=== PATIENT | female | born 1960 | race Caucasian/White ===

== ENCOUNTER 2016-04-03 14:08 | Outpatient (CLI) ==
[2012-08-01 13:15] VITALS: TEMP 97.2
[2016-02-29 13:38] VITALS: BMI 31.8
--- NOTE | 2016-04-03 14:37 | DI ---
EXAM: Two views of the chest. History: Follow-up pneumonia, respiratory failure. Comparison: Chest radiograph 06/22/2014, chest CT 02/19/2016 Findings: Heart size is normal. Right central line again seen in place. Calcified granulomas agai n seen within the thorax. No focal consolidation. No appreciable pleural fluid and no pneumothorax . Visualized osseous structures are unchanged. Impression: No acute cardiopulmonary process.
== END 2016-04-03 14:09 | disposition home or self-care (01) ==
LOC: RAD 14:08
PROVIDERS: ATTEND Family Medicine
DX: R53.81 Other malaise (principal); J18.9 Pneumonia, unspecified organism; A41.9 Sepsis, unspecified organism; J96.90 Respiratory failure, unspecified, unspecified whether with hypoxia or hypercapnia

== ENCOUNTER 2016-05-20 22:01 | Emergency (ER) ==
[2012-08-01 13:15] VITALS: TEMP 97.2
[2016-05-20 22:18] VITALS: BP 149/103; TEMP 98.6; BMI 40.6
--- NOTE | 2016-05-20 22:48 | ED.PDOC ---
General ED Provider: Dr. JAY CHAPMAN Chief Complaint: Respiratory Complaint Stated Complaint: Patient is a 55 year old female who states that she blacked out while standing, fell this morning. Now having dyspnea, right chest pain and left knee pain. She states she was confused soon after the fall. Time Seen by Physician: 22:42 Mode of Arrival: Wheelchair Information Source: Patient, Family Exam Limitations: No limitations Primary Care Provider: CHRISTOPHER LOPEZ Nursing and Triage Documentation Reviewed and Agree: Yes Respiratory Complaint Exam - Shortness of Air Complaint/Exam Onset/Duration: 1 day Symptoms Are: Still present Timing: Intermittent Initial Severity: Severe Current Severity: Severe Character: Reports: Dyspnea at rest Aggravating: Reports: Deep breaths Associated Signs and Symptoms: Reports: Chest pain (right upper chest ), Labored breathing Related History: Reports: Recent trauma (this morning. ) Cardiac Risk Factors: Reports: None Tuberculosis Risk Factors: Reports: None Home Oxygen Use: Yes (prn) Recent Stress Test: No Recent Echo/LV Function: No Respiratory Distress: Mild Stridor Present: No Tracheal Deviation: No Subcutaneous Emphysema: No Accessory Muscle Use: No Retractions: Not Present Diminished Breath Sounds: Yes Prolonged Expiratory Phase: No Unable to Speak Full Sentences: No Fatigue: No Leg Swelling: No Andry's Sign Present: No Grunting Respirations: No Kussmaul Respirations: No Differential Diagnoses: COPD Exacerbation, Pneumothorax, Pulmonary Embolism, Other (rib fractures ) Quality Indicator For Non-Traumatic Chest Pain/Syncope: EKG Performed Related Surgical History: Reports: Pneumothorax (rib fracture ) Review of Systems - Review Of Systems Constitutional: Reports: No symptoms Eyes: Reports: No symptoms Ears, Nose, Mouth, Throat: Reports: No symptoms Respiratory: Reports: No symptoms Cardiac: Reports: Chest pain GI: Reports: No symptoms : Reports: No symptoms Musculoskeletal: Reports: No symptoms Skin: Reports: No symptoms Neurological: Reports: Anxiety, Headache, Other (confusion after the fall. ) Endocrine: Reports: No symptoms Hematologic/Lymphatic: Reports: No symptoms All Other Systems: Reviewed and Negative Past Medical History - Past Medical History Previously Healthy: No Endocrine: Reports: None Cardiovascular: Reports: Hypertension Respiratory: Reports: COPD Hematological: Reports: None Gastrointestinal: Reports: None Genitourinary: Reports: None Neuro/Psych: Reports: None Musculoskeletal: Reports: Arthritis Cancer: Reports: Other (endometrial cancer ) Last Menstrual Period: 2010 Other Pertinent Past Medical History: Obesity - Surgical History General Surgical History: Reports: Hysterectomy, Cholecystectomy (surgery to repair gallbladder surg complication) - Family History Family History: Reports: None - Social History Smoking Status: Former smoker Hx Substance Use: No Alcohol Screening: None - Immunizations Tetanus Shot up to Date: No Physical Exam - Physical Exam Appearance: Ill-appearing, Obese Ill-appearing: Moderate Pain Distress: Severe Eyes: TIP, EOMI, Conjunctiva clear ENT: Ears normal, Nose normal, Oropharynx normal Neck: Supple Respiratory: Airway patent, Breath sounds diminished, Respirations nonlabored Cardiovascular: RRR, Pulses normal, No rub, No murmur GI/: Soft, Nontender, No masses, Bowel sounds normal, No Organomegaly Musculoskeletal: Normal strength, No calf tenderness, Limited ROM (left knee ), Edema Skin: Warm, Dry, Normal color Neurological: Sensation intact, Motor intact, Alert, Oriented Psychiatric: Anxious Interpretation - Radiology Interpretation Radiology Interpretation By: Radiologist Radiology Results: Positive (subcutenous Air Around the port onthe right upper chest which may represent infection.) Exam Interpreted: CT Scan - Graphics Manager Rate: Normal Rhythm: Sinus Ectopy: None - EKG Interpretation Time of EKG #1: 23:21 Rate: Normal Rhythm: Sinus Ectopy: None Husser: NL ST Segment: Normal Interpretation: normal EKG Physician Notification - Case Discussed Physician Notified: Tania Time of Notification: 03:06 (accepted for transfer. ) Critical Care Note - Critical Care Note Total Time (mins): 30 Course - Course Hematology/Chemistry: 05/20/16 23:10 05/20/16 23:10 Orders, Labs, Meds: Lab Review 05/20/16 05/20/16 22:50 23:10 WBC 5.64 RBC 4.33 Hgb 13.3 Hct 39.9 MCV 92.1 MCH 30.7 MCHC 33.3 RDW Coeff of Collin 13.6 Plt Count 141 Immature Gran % (Auto) 0.4 Neut % (Auto) 74.2 Lymph % (Auto) 15.8 [place] % (Auto) 6.6 Eos % (Auto) 2.5 Baso % (Auto) 0.5 Immature Gran # (Auto) 0.0 Neut # 4.2 Lymph # 0.9 [place]ster # 0.4 Eos # 0.1 Baso # 0.0 D-Dimer 8.10 H Puncture Site Rb O2 Saturation 88.0 L ABG pH 7.370 ABG pCO2 47.5 H ABG pO2 56.0 L* ABG HCO3 27.4 H ABG Total CO2 29 H ABG Base Excess 2 Zion Test + FiO2 % 21.0 Sodium 138 Potassium 4.0 Chloride 100 Carbon Dioxide 26 Anion Gap 16.0 BUN 12 Creatinine 1.12 Estimated GFR (MDRD) 50.00 BUN/Creatinine Ratio 10.71 Glucose 108 Lactic Acid 15.9 Calcium 9.3 Total Bilirubin 0.54 AST 11 L ALT 15 Alkaline Phosphatase 142 H Total Creatine Kinase 54 Troponin I < 0.0100 Total Protein 7.4 Albumin 3.8 Globulin 3.6 Albumin/Globulin Ratio 1.06 Procalcitonin < 0.05 Orders Category Date Time Status ABG DRAW REQUEST Stat CARDIO 05/20/16 22:52 Completed EKG-(ED ONLY) Stat CARDIO 05/20/16 22:51 Completed NEBULIZER TREATMENT Stat CARDIO 05/20/16 22:52 Completed ED DRILL PRESS TENDER APPLIED .ONCE EMERGENCY 05/20/16 22:50 Active ED IV/MEDIPORT/POWERPORT .ONCE EMERGENCY 05/20/16 22:50 Active ABG Stat LAB 05/20/16 22:50 Completed BLOOD CULTURE Stat LAB 05/20/16 23:10 Received CBC W/ AUTO DIFF Stat LAB 05/20/16 23:10 Completed COMPREHENSIVE METABOLIC PANEL Stat LAB 05/20/16 23:10 Completed CREATINE KINASE Stat LAB 05/20/16 23:10 Completed D-DIMER Stat LAB 05/20/16 23:10 Completed LACTIC ACID Stat LAB 05/20/16 23:10 Completed PROCALCITONIN Stat LAB 05/20/16 23:10 Completed TROPONIN I Stat LAB 05/20/16 23:10 Completed 0.9 % Sodium Chloride [Saline Flush] MEDS 05/20/16 22:50 Ordered 1 syr IVF PRN PRN Hydromorphone HCl [Dilaudid 1 mg/ml Syringe] MEDS 05/21/16 02:27 Discontinued 1 mg IVP ONCE STA Ipratropium/Albuterol Neb [Duoneb] MEDS 05/20/16 22:50 Discontinued 1 vial NEB ONCE STA Morphine Sulfate [Morphine 4 mg/ml Syringe] MEDS 05/20/16 23:04 Discontinued 4 mg IVP ONCE STA Ondansetron HCl/Pf [Zofran 4 mg/2 ml] MEDS 05/20/16 23:04 Discontinued 4 [address] IVP ONCE [address]A CT CERVICAL SPINE W/O CONTRAST Stat RADS 05/20/16 23:[address] CHEST W/O CONTRAST Stat RADS 05/20/16 23:[address] HEAD W/O CONTRAST Stat RADS 05/20/16 23:10 Completed KNEE, LEFT 4 VIEWS Stat RADS 05/20/16 23:13 Completed Medications Generic Name Dose Route Start Last Admin Trade Name Freq PRN Reason Stop Dose Admin Sodium Chloride 1 syr 05/20/16 22:50 05/21/16 03:02 Saline Flush IVF 1 syr PRN PRN Administration To flush IV Discontinued Medications Generic Name Dose Route Start Last Admin Trade Name Freq PRN Reason Stop Dose Admin Albuterol/Ipratropium 1 vial 05/20/16 22:50 05/20/16 23:20 Duoneb NEB 05/20/16 22:51 1 vial ONCE STA Administration Hydromorphone HCl 1 mg 05/21/16 02:27 05/21/16 03:01 Dilaudid 1 Mg/Ml Syringe IVP 05/21/16 02:28 1 mg ONCE STA Administration Morphine Sulfate 4 mg 05/20/16 23:04 05/20/16 23:38 Morphine 4 Mg/Ml Syringe IVP 05/20/16 23:05 4 mg ONCE STA Administration Ondansetron HCl 4 mg 05/20/16 23:04 05/20/16 23:38 Zofran 4 Mg/2 Ml IVP 05/20/16 23:05 4 mg ONCE STA Administration Vital Signs: Temp Pulse Resp BP Pulse Ox 05/20/16 22:07 98.6 F 89 22 149/103 H 96 Departure - Departure Time of Disposition: 03:07 Disposition: TSF SHORT-TRM HOSP Discharge Problem: Chest pain Subcutaneous emphysema Qualifiers: Encounter type: initial encounter Qualifier Code: (T79.7XXA) Traumatic subcutaneous emphysema, initial encounter Condition: Fair Pt referred to PMD for follow-up: No Allergies/Adverse Reactions: Allergies ketorolac tromethamine [From Toradol] Adverse Reaction (Mild, Verified 05/21/16 00:23) Itching itching at IV site and up her arm immediately after given clarithromycin [From Biaxin] Adverse Reaction (Verified 05/21/16 00:23) levofloxacin [From Levaquin] Adverse Reaction (Verified 05/21/16 00:23) promethazine HCl [From Phenergan] Adverse Reaction (Verified 05/21/16 00:23) sulfamethoxazole [From Bactrim] Adverse Reaction (Verified 05/21/16 00:23) trimethoprim [From Bactrim] Adverse Reaction (Verified 05/21/16 00:23) O Adverse Reaction (Uncoded 05/21/16 00:23) ORAL CONTRAST Adverse Reaction (Uncoded 05/21/16 00:23) Home Medications: Ambulatory Orders Albuterol Sulfate [Proair Hfa] 2 puff IH Q4H PRN 08/01/12 Citalopram Hydrobromide [Celexa] 40 mg PO DAILY 08/01/12 Ropinirole HCl [Requip] 0.5 mg PO BEDTIME 08/01/12 Trazodone HCl 150 mg PO BEDTIME 08/01/12 Furosemide [Lasix] 20 mg PO DAILY 06/22/14 Metoclopramide HCl [Reglan] 5 mg PO BID 06/22/14 Potassium Chloride [K-Dur] 20 meq PO DAILY 06/22/14 Amlodipine Besylate 5 mg PO DAILY 01/07/16 Diazepam 5 mg PO BID 01/07/16 Dicyclomine HCl 10 cap PO TID 01/07/16 Pantoprazole Sodium [Protonix] 40 mg PO BID 01/07/16 Sucralfate [Carafate] 1 gm PO ACHS 04/20/16 Oxycodone HCl 20 mg PO Q8HR PRN 05/21/16 Tiotropium [place] [Spiriva] 1 cap IH DAILY 05/21/16
[2016-05-20] MEDS ORDERED: DUONEB NEB STA (22:50)
[2016-05-20] MEDS ORDERED: MORPHINE 4 MG/ML SYRINGE IVP STA (23:04)
[2016-05-20] MEDS ORDERED: ZOFRAN 4 MG/2 ML IVP STA (23:04)
[2016-05-20 23:17] LABS: BASOPHILS % (AUTO) 0.5 % (0.0-3.0); EOSINOPHILS # (AUTO) 0.1 K/ul (0.0-0.7); EOSINOPHILS % (AUTO) 2.5 % (0.0-7.0); HEMATOCRIT 39.9 % (37.0-47.0); HEMOGLOBIN 13.3 g/dl (12.0-16.0); IMMATURE GRANULOCYTE % (AUTO) 0.4 % (0.0-5.0); LYMPHOCYTES # (AUTO) 0.9 K/uL (0.60-3.4); LYMPHOCYTES % (AUTO) 15.8 (10.0-50.0); MEAN CORPUSCULAR HEMOGLOBIN 30.7 pg (27.0-31.0); MEAN CORPUSCULAR HGB CONC 33.3 (31.8-35.4); MEAN CORPUSCULAR VOLUME 92.1 fl (81.0-99.0); MONOCYTES # (AUTO) 0.4 K/uL (0.4-2.0); MONOCYTES % (AUTO) 6.6 (0-10); NEUTROPHILS # (AUTO) 4.2 K/ul (2.0-6.9); NEUTROPHILS % (AUTO) 74.2; PLATELET COUNT 141 10^3/uL (140-440); RED BLOOD COUNT 4.33 10^6/ul (4.20-5.40); WHITE BLOOD COUNT 5.64 K/ul (4.6-10.2)
[2016-05-20 23:31] LABS: ABG BASE EXCESS 2 (-2.0-2.0); ABG PCO2 47.5 mmHg (35-45)
[2016-05-20 23:32] LABS: ABG HCO3 27.4 (22.0-26.0); ABG TCO2 29 (22.0-28.0)
[2016-05-20 23:52] LABS: ALANINE AMINOTRANSFERASE 15 U/L (12-78); ALBUMIN 3.8 g/dL (3.4-5.0); ALBUMIN/GLOBULIN RATIO 1.06; ALKALINE PHOSPHATASE 142 U/L (42-98); ASPARTATE AMINO TRANSFERASE 11 U/L (15-37); BILIRUBIN,TOTAL 0.54 mg/dL (0.00-1.20); BLOOD UREA NITROGEN 12 mg/dL (7-18); BUN/CREATININE RATIO 10.71; CALCIUM 9.3 mg/dL (8.2-10.2); CARBON DIOXIDE 26 mmol/L (21-32); CHLORIDE 100 mmol/L (98-107); CREATINE KINASE 54 U/L; CREATININE 1.12 mg/dL (0.60-1.30); GLUCOSE 108 mg/dL (70-110); SODIUM 138 mmol/L (136-145); TOTAL PROTEIN 7.4 g/dL (6.4-8.2)
--- NOTE | 2016-05-21 00:55 | CT ---
EXAM: CT of the cervical spine without contrast. HISTORY: Fall. PROCEDURE: Contiguous axial CT images of the cervical spine without contrast with coronal and sagit jenny reformats. FINDINGS: There is normal alignment of the cervical vertebral bodies and facets. The vertebral body heights are maintained. There is multilevel disc space narrowing. There are small posterior osteo phytes at multiple levels of the cervical spine. There is multilevel facet arthropathy. The C1-2 r elationship is maintained. No prevertebral soft tissue abnormality. Impression: No evidence of fracture. Normal alignment of the cervical spine with degenerative changes as described.
--- NOTE | 2016-05-21 01:04 | CT ---
EXAM: CT of the chest without contrast. HISTORY: Fall. PROCEDURE: Contiguous axial CT images of the chest without contrast with coronal and sagittal refor mats. FINDINGS: The heart is within normal limits in size. The thoracic aorta is within normal limits in diameter. There are calcified mediastinal and hilar lymph nodes. There is a MediPort catheter in ad equate position. There is subcutaneous air and inflammatory stranding adjacent to the port of the c atheter in the right anterior chest. There is minimal bibasilar atelectasis. No pneumothorax. There are T11 and T12 compression fractures with up to 90% loss of vertebral body height. There is an L1 compression fracture with interval increased compression compared with CT of 02/29/2016. There are multiple old bilateral rib fractures. Impression: T11, T12 and L1 compression fractures as described. Minimal bilateral atelectasis. Multiple old bilateral rib fractures. MediPort catheter with adjacent subcutaneous air and inflammatory stranding which may be related to recent placement of the MediPort catheter versus infection.
--- NOTE | 2016-05-21 01:10 | CT ---
EXAM: CT scan brain without contrast HISTORY: Fall COMPARISON: CT scan brain 07/31/2011 FINDINGS: Contiguous axial images obtained from the skull base to the convexities without contrast utilizing 5-mm collimation. Sagittal and coronal reconstructions were imaged and reviewed. The vent ricles and CSF spaces are mildly prominent compatible with age appropriate atrophy. There is perive ntricular hypodensity noted compatible with chronic microvascular disease. There are no acute intra cranial findings. The calvarium is intact. Mild scalp swelling is seen in the right frontal region . IMPRESSION: Age appropriate atrophy with chronic microvascular disease. Mild right frontal scalp swelling
--- NOTE | 2016-05-21 01:57 | DI ---
EXAM: Left knee three views HISTORY: Fall COMPARISON: None. FINDINGS: There is no evidence of fracture or joint effusion. There is mild narrowing of the media l joint compartment.. Surrounding soft tissues are unremarkable. IMPRESSION: No acute findings.
[2016-05-21] MEDS ORDERED: DILAUDID 1 MG/ML SYRINGE IVP STA (02:27)
== END 2016-05-21 03:45 | disposition short-term general hospital (02) ==
LOC: ED 22:01
DX: R07.9 Chest pain, unspecified (principal); T79.7XXA Traumatic subcutaneous emphysema, initial encounter; M25.562 Pain in left knee; R55 Syncope and collapse; R41.0 Disorientation, unspecified; R51 Headache; I10 Essential (primary) hypertension; Z79.899 Other long term (current) drug therapy; W19.XXXA Unspecified fall, initial encounter
CPT/HCPCS: 36415; 80053; 82550; 82803; 83605; 84145; 84484; 85025; 85379; 87040; 93005; 93010; 94640; 96374; 96375; 99285

== ENCOUNTER 2016-05-21 03:44 | Outpatient (CLI) ==
[2012-08-01 13:15] VITALS: TEMP 97.2
[2016-05-20 22:18] VITALS: BMI 40.6
== END 2016-05-21 03:45 ==
LOC: AMBL 03:44
PROVIDERS: ATTEND Internal Medicine Geriatric Medicine
DX: R07.89 Other chest pain (principal); W19.XXXA Unspecified fall, initial encounter; Z95.828 Presence of other vascular implants and grafts; Z98.890 Other specified postprocedural states

== ENCOUNTER 2016-05-27 12:52 | Outpatient (CLI) ==
[2012-08-01 13:15] VITALS: TEMP 97.2
--- NOTE | 2016-05-29 08:39 | HOLTER ---
PATIENT INFORMATION AND COMMENTS Indications: SYNCOPE __ Patient Medications: TRAZADONE, ZANAFLEX, POTASSIUM, DICYCLOMINE, REQUIP, CELEXA, AMLODIPINE, REGLAN, PROTONIX, FUROSEMIDE, DIAZEPAM, PRO AIR, OXYCODONE __ Pre-procedure Summary: Protocol: Standard Heart Rate Started: 05/27/16 1321 Minimum: 65 BPM Weight: 208 LBS Ended: 05/28/16 1321 Maximum: 117 BPM Height: 61" Duration: 24 HOURS Average: 87 BPM _ INTERPRETATIONS/OBSERVATIONS: 1. BASIC RHYTHM: SINUS, RATE 65 TO 120/MINUTE, AVERAGE 90/MINUTE 2. RARE PAC'S AND PVC'S 3. NO ST-T WAVE CHANGES FROM BASELINE 4. NO CORRELATION WITH ACTIVITY LOG MTDD
== END 2016-05-27 12:53 | disposition home or self-care (01) ==
LOC: CAR 12:52
PROVIDERS: ATTEND Family Medicine
DX: R55 Syncope and collapse (principal)
CPT/HCPCS: 93224

== ENCOUNTER 2016-08-11 16:15 | Observation (INO) | payer OTHER ==
[2016-08-11 17:43] VITALS: BMI 40.4
--- NOTE | 2016-08-11 18:22 | DI ---
EXAM: Chest, two views, 08/11/2016 HISTORY: Congestion COMPARISON: 04/03/2016 FINDINGS / IMPRESSION: Cardiomediastinal contours appear within normal limits. Basilar interstitia l opacities may represent atelectasis and/or pneumonia. There is no focal pulmonary consolidation. No pleural effusion or pneumothorax.
[2016-08-11] MEDS: SODIUM CHLORIDE 1,000 ML IV SCH (18:35)
[2016-08-11] MEDS: ZOFRAN 4 MG/2 ML IVP PRN (18:53)
[2016-08-11 19:09] LABS: ALANINE AMINOTRANSFERASE 9 U/L (12-78); ALBUMIN 3.2 g/dL (3.4-5.0); ALBUMIN/GLOBULIN RATIO 1.07; ALKALINE PHOSPHATASE 87 U/L (42-98); ANION GAP 12.7; ASPARTATE AMINO TRANSFERASE 15 U/L (15-37); BILIRUBIN,TOTAL 0.47 mg/dL (0.00-1.20); BLOOD UREA NITROGEN 5 mg/dL (7-18); BUN/CREATININE RATIO 5.74; CALCIUM 9.2 mg/dL (8.2-10.2); CARBON DIOXIDE 31 mmol/L (21-32); CHLORIDE 99 mmol/L (98-107); CREATINE KINASE 116 U/L; CREATININE 0.87 mg/dL (0.60-1.30); GLUCOSE 109 mg/dL (70-110); MYOGLOBIN 372 ng/ml; POTASSIUM 3.7 mmol/L (3.5-5.10); SODIUM 139 mmol/L (136-145); TOTAL PROTEIN 6.2 g/dL (6.4-8.2)
[2016-08-11 19:11] LABS: CREATINE KINASE MB 1.2 ng/ml (0.0-3.6)
[2016-08-11] MEDS ORDERED: VALIUM PO SCH (21:00)
[2016-08-11] MEDS ORDERED: ZANAFLEX PO SCH (21:00)
[2016-08-11] MEDS ORDERED: METOCLOPRAMIDE HCL 5 MG PO SCH (21:00)
[2016-08-11] MEDS ORDERED: REQUIP PO SCH (21:00)
[2016-08-11] MEDS ORDERED: NON-FORMULARY MEDICATION (Trazodone Hcl [Trazodone Hcl] 150 MG) PO SCH ×22 (21:00)
[2016-08-11] MEDS ORDERED: NON-FORMULARY MEDICATION (Pantoprazole Sodium [Protonix] 40 MG) PO SCH ×22 (21:00)
[2016-08-11] MEDS: OXYCODONE HCL 20 MG PO SCH (21:06)
[2016-08-12] MEDS: SODIUM CHLORIDE 1,000 ML IV SCH ×3 (02:20→18:52)
[2016-08-12 05:18] LABS: BASOPHILS % (AUTO) 0.7 % (0.0-3.0); EOSINOPHILS # (AUTO) 0.2 K/ul (0.0-0.7); HEMATOCRIT 34.4 % (37.0-47.0); IMMATURE GRANULOCYTE % (AUTO) 0.2 % (0.0-5.0); LYMPHOCYTES # (AUTO) 1.3 K/uL (0.60-3.4); LYMPHOCYTES % (AUTO) 32.5 (10.0-50.0); MEAN CORPUSCULAR HEMOGLOBIN 29.8 pg (27.0-31.0); MEAN CORPUSCULAR VOLUME 93.2 fl (81.0-99.0); MONOCYTES # (AUTO) 0.3 K/uL (0.4-2.0); MONOCYTES % (AUTO) 7.4 (0-10); NEUTROPHILS # (AUTO) 2.2 K/ul (2.0-6.9); NEUTROPHILS % (AUTO) 55.2; PLATELET COUNT 132 10^3/uL (140-440); RED BLOOD COUNT 3.69 10^6/ul (4.20-5.40); WHITE BLOOD COUNT 4.03 K/ul (4.6-10.2)
[2016-08-12] MEDS: OXYCODONE HCL 20 MG PO SCH (05:42)
[2016-08-12 06:00] LABS: BILIRUBIN,URINE Negative (NEGATIVE); KETONES,URINE Negative (NEGATIVE); LEUKOCYTE ESTERASE ,URINE Trace (NEGATIVE); NITRITE,URINE Positive (NEGATIVE); PROTEIN,URINE Negative (NEGATIVE); URINE, BLOOD Negative (NEGATIVE)
[2016-08-12 06:03] LABS: ADD URINE MICROSCOPIC YES
[2016-08-12] MEDS: DUONEB NEB SCH ×5 (06:18→23:27)
[2016-08-12] MEDS ORDERED: NON-FORMULARY MEDICATION (Pantoprazole Sodium [Protonix] 40 MG) PO SCH ×22 (06:30)
[2016-08-12] MEDS ORDERED: ZANAFLEX PO PRN (08:42)
[2016-08-12] MEDS ORDERED: OXYCODONE HCL 20 MG PO PRN (08:43)
[2016-08-12] MEDS ORDERED: NON-FORMULARY MEDICATION (Citalopram Hydrobromide [Celexa] 20 MG) PO SCH ×22 (09:00)
[2016-08-12] MEDS: ZOFRAN 4 MG/2 ML IVP PRN (09:35)
[2016-08-12] MEDS: VALIUM PO SCH ×2 (09:47→20:39)
[2016-08-12] MEDS: METOCLOPRAMIDE HCL 5 MG PO SCH ×2 (09:47→20:37)
[2016-08-12] MEDS: NORVASC PO SCH (09:48)
[2016-08-12] MEDS: NON-FORMULARY MEDICATION (Citalopram Hydrobromide [Celexa] 20 MG) PO SCH ×22 (09:52)
--- NOTE | 2016-08-12 11:56 | HP ---
SOURCE: The source of this information is prior knowledge of the patient, review of her office records, discussion with she and her ; both seem reliable. PATIENT PROFILE: Grecia is a 55-year-old , female resident of [facility]. She was cooperative. CHIEF COMPLAINT: "I am vomiting and so nauseous." BRIEF HISTORY OF PRESENT ILLNESS: She has on and off problems with nausea. She has had 12 to 24 hours of nearly persistent vomiting. She recalls in January having this when she was admitted to [facility] and subsequently developing a temperature of 102, hypoxemia, pneumonia and clinical findings for sepsis. She also recently had difficulty with recurring UTI and she has had dysuria. She wasn't sure if there has been a fever. She has multiple comorbidities including chronic respiratory failure of hypoxic type. We decided to place her on observation to acquire labs, chest x- ray, give fluids and see whether she does have findings to suggest sepsis. She does have a UTI, does have a pneumonia or whether she can have resolution of the nausea and vomiting with the brief fluids. PAST HISTORY: CHILDHOOD: Unremarkable. ALLERGIES/INTOLERANCE: BIAXIN (NAUSEA, VOMITING, DIARRHEA), ORAL CONTRAST ( NAUSEA, VOMITING, DIARRHEA), CEFTIN (DIARRHEA), ADVAIR (PALPITATIONS), BACTRIM ( NAUSEA), ELAVIL (PALPITIONS), IV TORADOL (ITCHING), LEVAQUIN (DIARRHEA), PHENERGAN (RESPIRATORY DISTRESS), PROMETHAZINE (NAUSEA AND VOMITING), PHENOTHIAZINE (NAUSEA AND VOMITING), K-DUR (HEARTBURN) HOME MEDICATIONS: 1. ProAir two puffs q.4hr as needed 2. Celexa 40 mg one a day 3. Desyrel/Trazodone 150 mg one at bedtime 4. Requip/Ropinirole 0.252 at bedtime 5. K-Dur/potassium chloride 12 mEq one a day as needed 6. Reglan/Metoclopramide 5 mg b.i.d. 7. Pantoprazole 40 mg b.i.d. 8. Valium/Diazepam 5 mg b.i.d. 9. Norvasc/Amlodipine 5 mg once a day 10. Dicyclomine 10 mg three times a day 11. Lasix/Furosemide 20 mg twice a day as needed for edema (and if she takes it she takes potassium) 12. Oxycodone 20 mg q.8hr 13. Zanaflex/Tizanidine 4 mg at bedtime 14. Oxygen 2L/nasal prong continuous HOSPITALIZATIONS/SURGERIES/PROCEDURES: 2, Para 2, AB 0. She had normal heart catheterization, Dr. Ellis, [facility] 08/31/04; several EGDs - the last one short Iyer's, Dr. Rodríguez , [place], 01/17/16. She has a history of being H. Pylori positive in 03/2012. She had a MICKY and BSO, Dr. Love, [facility], 02/10/11 for cancer. She had a lap gallbladder at [facility], Dr. Valerio, 12/30/12. Last admission here was 07/01 through 07/08/13 for shortness of breath, acute respiratory failure. FAMILY HISTORY: Diabetes in father, paternal grandmother. CVA maternal grandmother. Colon cancer in paternal grandfather. HABITS: Smoker, age 11, one pack per day. No second-handed smoke. No alcohol or drugs. SOCIAL HISTORY: 1989, has two children, employed at [employer] until she had to take disability in 2011. REVIEW OF SYSTEMS: GENERAL: She is extremely fatigued all the time; in fact we have been trying to get her into pulmonary rehabilitation but she needs spirometry done before she can get there. INTEGUMENT: She easily bruises. She denies any open wounds. HEENT: Denies nasal congestion, sore throat beyond her usual on and off. NECK: Chronic neck and back pain; denies mass. CHEST: Usual wheeze but no production. No hemoptysis. CARDIOVASCULAR: Denies chest pain, has occasional faster heart rate and leg edema. GI: Denies localized abdominal pain. Diffusely sore. Denies constipation, diarrhea. : Denies hematuria. MUSCULOSKELETAL: Several joints are sore but none are particularly red or swollen. NEUROLOGIC: Weakness of upper and lower extremities, makes gait difficult and she frequently uses a walker. PHYSICAL EXAMINATION: VITALS: Temperature 98.2, pulse 92, respirations 18, BP 166/100 left; 152/102 right arm; height 5'1", weight 214 pounds. GENERAL: Older than stated age white female who appears very fatigued; no obvious distress. INTEGUMENT: Several senile purpuric areas on the arms. Her color is somewhat ashen. Cushingoid features. Tongue is moist. HEENT: Facial symmetry. Pupils equal, round, extraocular movements intact. Tongue is midline. NECK: No point tenderness. No visible lymphadenopathy, thyromegaly, mass seen or felt and supple. No meningismus. CHEST: Markedly diminished, barreled. Soft expiratory wheeze; no dullness at the bases. CARDIOVASCULAR: S1, S2, distant without murmur, carotid bruit and distal pulses are intact. No current leg edema. GI: Protuberant. No rebound, guarding or mass though mildly tender throughout. Bowel sounds seemed diminished. : Deferred. MUSCULOSKELETAL: Marked muscle wasting without fasciculation. No red or swollen joints. NEUROLOGIC: Light touch sensation lower extremity. There is facial asymmetry. Instructional Assistant are equal. PSYCHIATRIC: She is oriented times h ASSESSMENT/PROBLEM LIST: 0. 55-year-old white female. 1. Allergies/intolerances see above. 2. Procedural history see above. 3. Family history see above. 4. Tobacco/nicotine abuse/addiction. 5. Obesity. 6. COPD. 7. Chronic depression. 8. History of GE reflux 9. History of peptic ulcer 10. Hypertension 11. Noncompliance - usually financially driven 12. Irritable bowel syndrome by GI opinion 13. Hiatal hernia by EGD 14. Uterine cancer - treated surgically 15. History of Iyer's 16. History of cystocele 17. Spondylolisthesis - lumbosacral 18. Chronic back pain 19. Obesity 20. Chronic respiratory failure - hypoxic 21. Chronic anxiety 22. Midline ventral hernia 23. Chronic headaches - questionable occipital 24. Insomnia - chronic 25. Sleep apnea compliant with treatment 26. Colitis - history of 27. Lower extremity radicular pain 28. Restless leg syndrome 29. Chronic steroids with Cushingoid features REASON FOR ADMISSION: # Nausea # Gait decline - acute on chronic # Nausea without vomiting # History of sepsis # Dysuria PLAN: 1. Labs have been ordered. 2. Chest x-ray has been ordered. 3. Will follow labs daily. 4. Medications have been reviewed; minor adjustments with medicines that could cause nausea. 5. Continue daily review of medications and their appropriateness. 6. Discharge plan from the onset would be home if at all possible. 7. Try to maintain stability of all the other chronic problems in the meantime. 8. Try to get her spirometry down while she is here. MTDD
[2016-08-12] MEDS ORDERED: OXYCODONE HCL 20 MG PO SCH (13:00)
[2016-08-12] MEDS: NON-FORMULARY MEDICATION (Pantoprazole Sodium [Protonix] 40 MG) PO SCH ×22 (16:43)
[2016-08-12] MEDS ORDERED: NON-FORMULARY MEDICATION (Trazodone Hcl [Trazodone Hcl] 150 MG) PO SCH ×22 (21:00)
[2016-08-12] MEDS ORDERED: ZANAFLEX PO SCH (21:00)
[2016-08-12] MEDS ORDERED: NON-FORMULARY MEDICATION (Ropinirole Hcl [Requip] 0.5 MG) PO SCH (21:00)
[2016-08-12] MEDS ORDERED: REQUIP PO SCH (21:00)
[2016-08-13] MEDS: DUONEB NEB SCH ×2 (05:22→11:36)
[2016-08-13] MEDS: NON-FORMULARY MEDICATION (Pantoprazole Sodium [Protonix] 40 MG) PO SCH ×22 (05:52)
[2016-08-13] MEDS: METOCLOPRAMIDE HCL 5 MG PO SCH (08:32)
[2016-08-13] MEDS: VALIUM PO SCH (08:32)
[2016-08-13] MEDS: NON-FORMULARY MEDICATION (Citalopram Hydrobromide [Celexa] 20 MG) PO SCH ×22 (08:32)
[2016-08-13] MEDS: NORVASC PO SCH (08:32)
[2016-08-13] MEDS ORDERED: PREMARIN VAGINAL CREAM VAGINAL SCH (09:00)
[2016-08-13 10:07] VITALS: BP 122/75; TEMP 97.9
--- NOTE | 2016-08-13 10:48 | PN ---
DATE OF SERVICE: 08/12/16 CHIEF COMPLAINT: "I was vomiting and nauseous." SUBJECTIVE: The patient was admitted through the office with complaints of rather sudden onset of nausea and vomiting though she has had this on and off. She had had previous sepsis; combining the complaints with dysuria. We were both concerned that she needed to be pursued as a possible infection. Fortunately, her vitals have remained stable, her prolactin and lactic acid were normal and her nausea and vomiting have improved perhaps from the IV fluids and/or diminution of Requip, Celexa and attention to some of her poly pharmacy. Her urine is clear. She continues to have feelings of dysuria and at times she can't even void when she feels she needs to go. She had her PFT today. FEV/FEV1 are extremely low in the 40 to 50 range. Her FEV percent is 76. White count 4, hemoglobin 11. She noted no acute distress. OBJECTIVE: INTEGUMENT: Cushingoid; no ankle edema in a lying position. Nonicteric sclerae. Mucous membranes moist. NECK: Supple. CHEST: Diminished; soft wheeze bilaterally; kyphotic. CARDIOVASCULAR: S1, S2 without murmur or peripheral edema. GI: No rebound, guarding or mass. ASSESSMENT: # Nausea, perhaps medication influence. # Nausea and vomiting - same. # Gait decline - acute on chronic. # History of sepsis. # Dysuria without cause. # Radiation vaginitis - likely. # Chronic respiratory failure - hypoxic. # COPD. PLAN: 1. We want to do a bladder scan after her next void and any time she feels she can't void to see if there is any issue with that. 2. Will start Estrogen cream if not even for a short period of time considering her uterine cancer history. 3. Maybe she can get her pulmonary rehabilitation started now as an outpatient. 4. Weaning IV. 5. Planning discharge tomorrow and she agrees if things remain stable. [facility]
--- NOTE | 2016-08-19 13:58 | DS ---
PATIENT PROFILE: Grecia is a 55-year-old , female resident of [facility]. She was cooperative. CHIEF COMPLAINT: "I am vomiting and so nauseous." BRIEF HISTORY OF PRESENT ILLNESS: She has on and off problems with nausea. She has had 12 to 24 hours of nearly persistent vomiting. She recalls in January having this when she was admitted to [facility] and subsequently developing a temperature of 102, hypoxemia, pneumonia and clinical findings for sepsis. She also recently had difficulty with recurring UTI and she has had dysuria. She wasn't sure if there has been a fever. She has multiple comorbidities including chronic respiratory failure of hypoxic type. We decided to place her on observation to acquire labs, chest x- ray, give fluids and see whether she does have findings to suggest sepsis. She does have a UTI, does have a pneumonia or whether she can have resolution of the nausea and vomiting with the brief fluids. PAST HISTORY: CHILDHOOD: Unremarkable. ALLERGIES/INTOLERANCE: BIAXIN (NAUSEA, VOMITING, DIARRHEA), ORAL CONTRAST ( NAUSEA, VOMITING, DIARRHEA), CEFTIN (DIARRHEA), ADVAIR (PALPITATIONS), BACTRIM ( NAUSEA), ELAVIL (PALPITIONS), IV TORADOL (ITCHING), LEVAQUIN (DIARRHEA), PHENERGAN (RESPIRATORY DISTRESS), PROMETHAZINE (NAUSEA AND VOMITING), PHENOTHIAZINE (NAUSEA AND VOMITING), K-DUR (HEARTBURN) HOME MEDICATIONS: 1. ProAir two puffs q.4hr as needed 2. Celexa 40 mg one a day 3. Desyrel/Trazodone 150 mg one at bedtime 4. Requip/Ropinirole 0.252 at bedtime 5. K-Dur/potassium chloride 12 mEq one a day as needed 6. Reglan/Metoclopramide 5 mg b.i.d. 7. Pantoprazole 40 mg b.i.d. 8. Valium/Diazepam 5 mg b.i.d. 9. Norvasc/Amlodipine 5 mg once a day 10. Dicyclomine 10 mg three times a day 11. Lasix/Furosemide 20 mg twice a day as needed for edema (and if she takes it she takes potassium) 12. Oxycodone 20 mg q.8hr 13. Zanaflex/Tizanidine 4 mg at bedtime 14. Oxygen 2L/nasal prong continuous HOSPITALIZATIONS/SURGERIES/PROCEDURES: 2, Para 2, AB 0. She had normal heart catheterization, Dr. Ellis, [facility] 08/31/04; several EGDs - the last one short Iyer's, Dr. Rodríguez , [place], 01/17/16. She has a history of being H. Pylori positive in 03/2012. She had a MICKY and BSO, Dr. Love, [facility], 02/10/11 for cancer. She had a lap gallbladder at [facility], Dr. Valerio, 12/30/12. Last admission here was 07/01 through 07/08/13 for shortness of breath, acute respiratory failure. FAMILY HISTORY: Diabetes in father, paternal grandmother. CVA maternal grandmother. Colon cancer in paternal grandfather. HABITS: Smoker, age 11, one pack per day. No second-handed smoke. No alcohol or drugs. SOCIAL HISTORY: 1989, has two children, employed at [employer] until she had to take disability in 2011. REVIEW OF SYSTEMS: GENERAL: She is extremely fatigued all the time; in fact we have been trying to get her into pulmonary rehabilitation but she needs spirometry done before she can get there. INTEGUMENT: She easily bruises. She denies any open wounds. HEENT: Denies nasal congestion, sore throat beyond her usual on and off. NECK: Chronic neck and back pain; denies mass. CHEST: Usual wheeze but no production. No hemoptysis. CARDIOVASCULAR: Denies chest pain, has occasional faster heart rate and leg edema. GI: Denies localized abdominal pain. Diffusely sore. Denies constipation, diarrhea. : Denies hematuria. MUSCULOSKELETAL: Several joints are sore but none are particularly red or swollen. NEUROLOGIC: Weakness of upper and lower extremities, makes gait difficult and she frequently uses a walker. PHYSICAL EXAMINATION: VITALS: Temperature 98.2, pulse 92, respirations 18, BP 166/100 left; 152/102 right arm; height 5'1", weight 214 pounds. GENERAL: Older than stated age white female who appears very fatigued; no obvious distress. INTEGUMENT: Several senile purpuric areas on the arms. Her color is somewhat ashen. Cushingoid features. Tongue is moist. HEENT: Facial symmetry. Pupils equal, round, extraocular movements intact. Tongue is midline. NECK: No point tenderness. No visible lymphadenopathy, thyromegaly, mass seen or felt and supple. No meningismus. CHEST: Markedly diminished, barreled. Soft expiratory wheeze; no dullness at the bases. CARDIOVASCULAR: S1, S2, distant without murmur, carotid bruit and distal pulses are intact. No current leg edema. GI: Protuberant. No rebound, guarding or mass though mildly tender throughout. Bowel sounds seemed diminished. : Deferred. MUSCULOSKELETAL: Marked muscle wasting without fasciculation. No red or swollen joints. NEUROLOGIC: Light touch sensation lower extremity. There is facial asymmetry. Slate Splitter are equal. PSYCHIATRIC: She is oriented times h ASSESSMENT/PROBLEM LIST: 0. 55-year-old white female. 1. Allergies/intolerances see above. 2. Procedural history see above. 3. Family history see above. 4. Tobacco/nicotine abuse/addiction. 5. Obesity. 6. COPD. 7. Chronic depression. 8. History of GE reflux 9. History of peptic ulcer 10. Hypertension 11. Noncompliance - usually financially driven 12. Irritable bowel syndrome by GI opinion 13. Hiatal hernia by EGD 14. Uterine cancer - treated surgically 15. History of Iyer's 16. History of cystocele 17. Spondylolisthesis - lumbosacral 18. Chronic back pain 19. Obesity 20. Chronic respiratory failure - hypoxic 21. Chronic anxiety 22. Midline ventral hernia 23. Chronic headaches - questionable occipital 24. Insomnia - chronic 25. Sleep apnea compliant with treatment 26. Colitis - history of 27. Lower extremity radicular pain 28. Restless leg syndrome 29. Chronic steroids with Cushingoid features REASON FOR ADMISSION: # Nausea # Gait decline - acute on chronic # Nausea without vomiting # History of sepsis # Dysuria HOSPITAL COURSE: Ms. Key was admitted with IV fluids, which I believe prevented her from becoming dehydrated; she proved not to have a UTI or sepsis by mini cath urine that was unremarkable. We tried to give some estrogen topically to the vaginal area but she wasn't able to obtain that before discharge. She was improved enough overall that she wanted to go home and try that after going home. Her nausea resolved. On admission we diminished her Celexa from 40 to 30, her Requip from 0.5 to 0.25 and made other minor medicine changes, which seemed to make her feel better. Her white count was 4, hemoglobin 11 with unremarkable indices and platelets; her chemistries showed initial GFR of 67, negative troponin with low protein and albumin and negative procalcitonin at 0.05 and lactic acid at 6.6 and 8; both normal. Chest x-ray showed nothing acute. Improved, we elected to follow her as an outpatient. She also had spirometry done which will now allow for her to start her outpatient pulmonary rehabilitation. DISCHARGE ASSESSMENT/PROBLEM LIST (CHANGED FROM ADMISSION): # Nausea - perhaps related to medications # Nausea and vomiting - same # Gait decline - acute on chronic # History of sepsis - not proven this time # Dysuria - possibly related to radiation vaginitis # History of radiation vaginitis # Chronic respiratory failure - hypoxic and stable # COPD PLAN: 1. Discharge 2. Medications: a) See AVS b) Estrogen cream apply topically to introitus, meatus and labia minora once a day for 10 days #2, no refill, E-prescribe to her pharmacy 3. Activity a) Gradually increase as able 4. Diet as tolerated 5. Followup a) Dr. Osorio in 7 to 10 days PROGNOSIS: Guarded CONDITION: Stable and improved MTDD
== END 2016-08-13 13:16 | disposition home or self-care (01) ==
LOC: MEDSURG B 16:15
PROVIDERS: ADMIT Family Medicine; ATTEND Family Medicine
DX: R11.2 Nausea with vomiting, unspecified (principal); J96.11 Chronic respiratory failure with hypoxia; J44.9 Chronic obstructive pulmonary disease, unspecified; R26.89 Other abnormalities of gait and mobility; N76.0 Acute vaginitis; R30.0 Dysuria; F17.210 Nicotine dependence, cigarettes, uncomplicated; E24.2 Drug-induced Cushing's syndrome; Z86.19 Personal history of other infectious and parasitic diseases; Z79.899 Other long term (current) drug therapy
CPT/HCPCS: 36415; 80053; 81001; 82550; 82553; 83605; 83874; 84145; 84484; 85025; 87040; 87081; 93005; 93010; 94640; 96361; 96374; 96376; 97802

== ENCOUNTER 2017-06-09 13:00 | Outpatient (CLI) | payer OTHER ==
--- NOTE | 2017-06-09 13:35 | CT ---
EXAM: CT head without contrast. HISTORY: Headache, nausea, dizziness. COMPARISON: 05/21/2016. TECHNIQUE: Multiple axial images of the brain were obtained from the skull base through the vertex w ithout intravenous contrast. Multiplanar reformats were provided. FINDINGS: There is no intracranial hemorrhage or extraaxial collection. The ruiz-white differentiat ion is maintained without evidence for acute large vascular territory infarction. The cortical sulci and basal cisterns are well visualized. There is no hydrocephalus, mass effect, or midline shift. The paranasal sinuses and mastoid air cells are clear. The calvarium is intact. Since the prior lincoln dy, there has been no significant interval change. IMPRESSION: No acute intracranial abnormality.
== END 2017-06-09 13:01 | disposition home or self-care (01) ==
LOC: RAD 13:00
PROVIDERS: ATTEND Family Medicine
DX: R51 Headache (principal)

== ENCOUNTER 2017-08-20 13:39 | Outpatient (CLI) | payer OTHER ==
--- NOTE | 2017-08-20 15:15 | DEXA ---
Exam: Bone densitometry DEXA scan performed on the [employer] device. Comparison: 10/17/2013. Reason for exam: Osteoporosis. FINDINGS: Imaging was obtained of the lumbar spine and deemed to be adequate for interpretation. Total BMD of the lumbar spine measures 0.994 grams per centimeter squared T-score -1.6. Z-score -1.0 WHO classification suggest osteopenia. Imaging was obtained of the left and right hips and deemed to be adequate for interpretation. BMD of the left femoral neck measures 0.525 grams per centimeter squared T-score -3.7. Z-score -2.9 BMD of the right femoral neck measures 0.543 grams per centimeter squared T-score -3.6. Z-score -2.7 Mean BMD measures 0.675 grams per centimeter squared T-score -2.6. Z-score -2.2 WHO classification suggests osteoporosis. Impression: 1. WHO classification suggests osteoporosis in the left femoral and right femoral necks with osteope sandra in the lumbar spine. 2. WHO fracture risk assessment tool (FRAX) 10-year fracture risk assessment. Major osteoporotic fracture risk over 10 years. 30.6%. Hip fracture risk over 10 years. 13.4%.
--- NOTE | 2017-08-23 11:14 | MAMMO ---
EXAM: Screening mammogram with tomosynthesis HISTORY: Screening COMPARISON: 10/17/2013 FINDINGS: MLO and CC views of the right and left breast were performed. Tomosynthesis was performed. Computer aided detection utilized. The breast tissue is almost entirely fatty replaced. Stable chip ign intramammary lymph node right breast. There is no evidence for mass, asymmetry, distortion, or s uspicious calcifications in either breast. IMPRESSION: 1. No mammographic evidence of malignancy in the right or left breast. 2. Annual screening mammogram is recommended in one year. BIRADS category 2, benign
== END 2017-08-20 13:40 | disposition home or self-care (01) ==
LOC: RAD 13:39
PROVIDERS: ATTEND Family Medicine
DX: Z12.31 Encounter for screening mammogram for malignant neoplasm of breast (principal); M81.0 Age-related osteoporosis without current pathological fracture
CPT/HCPCS: 77067

== ENCOUNTER 2017-10-07 11:00 | Outpatient (CLI) ==
[2017-10-07] MEDS ORDERED: PROLIA SUBCUT STA (11:32)
[2017-10-07 11:34] VITALS: BP 126/77; TEMP 97.3
== END 2017-10-07 11:01 ==
LOC: OPMED 11:00
PROVIDERS: ATTEND Family Medicine
DX: M81.0 Age-related osteoporosis without current pathological fracture (principal)
CPT/HCPCS: 96372

== ENCOUNTER 2018-06-20 08:46 | Outpatient (CLI) | END 2018-06-20 09:02 | disposition short-term general hospital (02) | LOC: AMBL 08:46 | PROVIDERS: ATTEND Internal Medicine | DX: R06.03 Acute respiratory distress (principal); R23.0 Cyanosis; Z99.81 Dependence on supplemental oxygen; R06.2 Wheezing; R09.89 Other specified symptoms and signs involving the circulatory and respiratory systems; R00.0 Tachycardia, unspecified ==